=== PATIENT | female | born 1980 | race Caucasian/White ===

== ENCOUNTER 2022-06-27 18:57 | Emergency (ER) | payer OTHER ==
[~2022-06-27] VITALS: Ht 157.5 cm; Wt 65.3 kg
[2022-06-27] MEDS ORDERED: CEPHALEXIN500 MG PO (22:55)
== END 2022-06-27 22:58 | disposition home or self-care (01) ==
LOC: ER 18:57
DX: L03.113 Cellulitis of right upper limb (principal); L02.511 Cutaneous abscess of right hand

== ENCOUNTER 2022-12-01 15:16 | Emergency (ER) | payer OTHER ==
[~2022-12-01] VITALS: Ht 157.5 cm; Wt 68.0 kg
[~2022-12-01 15:16] MED LIST: CEPHALEXIN500 MG PO; CLARITIN-D 121 EACH PO; TUSSI PRES-B L480 ML PO; TUSSIN DM LIQU118 ML PO
== END 2022-12-01 20:09 | disposition home or self-care (01) ==
LOC: ER 15:16
DX: R10.2 Pelvic and perineal pain (principal)

== ENCOUNTER 2023-04-07 10:12 | Outpatient (CLI) | payer OTHER | END 2023-04-07 10:14 | disposition home or self-care (01) | LOC: LAB 10:12 | PROVIDERS: ATTEND Obstetrics & Gynecology | DX: N91.2 Amenorrhea, unspecified (principal); E34.9 Endocrine disorder, unspecified; E23.6 Other disorders of pituitary gland; N39.0 Urinary tract infection, site not specified; E55.9 Vitamin D deficiency, unspecified; N73.9 Female pelvic inflammatory disease, unspecified; K75.9 Inflammatory liver disease, unspecified; Z20.822 Contact with and (suspected) exposure to COVID-19 ==

== ENCOUNTER 2023-04-07 12:10 | Outpatient (CLI) | payer OTHER | END 2023-04-07 12:36 | disposition home or self-care (01) | LOC: SONOGRAMA 12:10 | PROVIDERS: ATTEND Family Medicine Adult Medicine | DX: N20.0 Calculus of kidney (principal) ==

== ENCOUNTER 2023-04-16 09:23 | Outpatient (CLI) | payer OTHER | END 2023-04-16 09:24 | disposition home or self-care (01) | LOC: LAB 09:23 | PROVIDERS: ATTEND Family Medicine Adult Medicine | DX: Z13.9 Encounter for screening, unspecified (principal) ==

== ENCOUNTER 2023-04-16 09:59 | Outpatient (CLI) | payer OTHER | END 2023-04-16 10:08 | disposition home or self-care (01) | LOC: MAMO-SONO 09:59 | PROVIDERS: ATTEND Obstetrics & Gynecology | DX: Z12.31 Encounter for screening mammogram for malignant neoplasm of breast (principal); N63.10 Unspecified lump in the right breast, unspecified quadrant; N63.20 Unspecified lump in the left breast, unspecified quadrant ==

== ENCOUNTER 2023-05-14 10:52 | Emergency (ER) | payer OTHER ==
[~2023-05-14] VITALS: Ht 157.5 cm; Wt 61.2 kg
[2023-05-14] MEDS ORDERED: DICLOFENAC SODI75 MG PO (12:53)
[2023-05-14] MEDS ORDERED: NORFLEX100MG PO (12:53)
== END 2023-05-14 13:40 | disposition home or self-care (01) ==
LOC: ER 10:52
DX: M54.89 Other dorsalgia (principal); N20.0 Calculus of kidney

== ENCOUNTER 2024-01-26 10:37 | Outpatient (CLI) | payer OTHER ==
[~2024-01-26 10:37] MED LIST changes: +DICLOFENAC SODI75 MG PO; +NORFLEX100MG PO
== END 2024-01-26 10:41 | disposition home or self-care (01) ==
LOC: SONOGRAMA 10:37
PROVIDERS: ATTEND Family Medicine Adult Medicine
DX: N20.0 Calculus of kidney (principal); N39.0 Urinary tract infection, site not specified

== ENCOUNTER 2024-01-26 11:18 | Outpatient (CLI) | payer OTHER | END 2024-01-26 11:30 | disposition home or self-care (01) | LOC: TOM 11:18 | PROVIDERS: ATTEND Urology | DX: N20.1 Calculus of ureter (principal) ==

== ENCOUNTER 2024-06-03 09:43 | Outpatient (CLI) | payer OTHER | END 2024-06-03 09:54 | disposition home or self-care (01) | LOC: SONOGRAMA 09:43 | PROVIDERS: ATTEND Family Medicine Adult Medicine | DX: N20.0 Calculus of kidney (principal) ==

== ENCOUNTER 2024-06-03 09:56 | Outpatient (CLI) | payer OTHER ==
[2024-06-03 10:54] LABS: URINE APPEARANCE Clear; URINE BILIRRUBIN Negative (NEGATIVE); URINE BLOOD Small; URINE COLOR Yellow; URINE GLUCOSE Negative (NEGATIVE); URINE LEUKOCYTE Negative; URINE NITRATE Negative; URINE PROTEIN Negative (NEGATIVE); URINE UROBILINOGEN 0.2 E.U./dl
[2024-06-03 10:58] LABS: URINE EPITHELIAL CELLS 3.6 uL (0.0-38.8); URINE RBC 18.4 uL (0.0-20.8)
[2024-06-03 11:07] LABS: URINE BACTERIA 2.5 uL (0.0-1933); URINE WBC 1.3 uL (0.0-23.2)
[2024-06-03 11:52] LABS: CALCIUM 9.1 mg/dL (8.5-10.1); CHOL HDL RATIO 2.6 (0-5.0); CREATININE SERUM 0.65 mg/dL (0.55-1.02); GFR 99.02; POTASSIUM 4.55 mEq/L (3.5-5.1)
== END 2024-06-03 10:04 | disposition home or self-care (01) ==
LOC: LAB 09:56
PROVIDERS: ATTEND Family Medicine Adult Medicine
DX: N20.0 Calculus of kidney (principal); E78.9 Disorder of lipoprotein metabolism, unspecified; I10 Essential (primary) hypertension